=== PATIENT | male | born 1975 | race Caucasian/White ===

== ENCOUNTER 2021-12-31 07:12 | Inpatient (IN) | payer SELFPAY ==
[2021-12-31] VITALS (10 sets, daily range): BP systolic 112–136; BP diastolic 60–85; PULSE 68–94; RESP 16–24; TEMP 36.5–37; O2SAT 97–100; BMI 23.0
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
[2021-12-31] MEDS: SODIUM CHLORIDE 0.9% IV 1,000 ML 999 ML IV CONT ×2 (07:30→09:14)
[2021-12-31] MEDS: MORPHINE SULFATE (*CRX) 4 MG/ML INJ IM (07:32)
[2021-12-31] MEDS: TETANUS,DIPHTHERIA,AC PERTUSSIS ADULT 0.5 ML (ADACEL) IM (07:36)
[2021-12-31 07:43] LABS: Hematocrit 28.7 % (40.0-54.0); Hemoglobin 9.5 g/dL (14.0-18.0); Mean Corpuscular HGB Conc 33.1 g/dL (32.0-36.0); Mean Corpuscular Hemoglobin 27.5 pg (27.0-31.0); Mean Corpuscular Volume 83.2 fL (78.0-102.0); Mean Platelet Volume 10.6 fl (8.7-11.0); Platelet Count Result 220 K/mm3 (150-420); Red Blood Count 3.45 M/mm3 (4.70-6.10); Red Cell Distribution Width 16.7 % (11.6-14.4); White Blood Count 6.4 K/mm3 (4.8-10.8)
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
[2021-12-31 08:00] LABS: Lactic Acid Reflex 2.3 mmol/L (0.4-2.0)
[2021-12-31 08:03] LABS: Band Neutrophils Percent 2 % (0-6); Lymphocytes Absolute Manual 1.02 K/mm3 (1.1-4.5); Lymphocytes Percent Manual 16 % (18-44); Monocytes Absolute Manual 0.44 K/mm3 (0.1-0.90); Monocytes Percent Manual 7 % (3-9); Neutrophils Absolute Manual 4.92 K/mm3 (1.3-6.7); Neutrophils Percent Manual 75 % (46-73); Platelet Estimate Adequate (Adequate); Total Cells Counted 100
[2021-12-31 08:09] LABS: Alanine Aminotransferase 101 U/L (16-63); Albumin Level 3.6 g/dL (3.4-5.0); Alkaline Phosphatase 70 U/L (46-116); Anion Gap 10 mmol/L (8-16); Aspartate Amino Transferase 193 U/L (15-37); Bilirubin,Total 0.4 mg/dL (0.00-1.00); Blood Urea Nitrogen 21 mg/dL (7-18); Calcium 7.9 mg/dL (8.5-10.1); Carbon Dioxide 20 mmol/L (21-32); Chloride 111 mmol/L (98-108); Creatine Kinase 5195 U/L (39-308); Estimated CRCL calculation 63 ml/min; Estimated Glomerular Filt Rate > 60; Glucose 103 mg/dL (70-99); Osmolality Calculated 295 mOsm/kg (285-295); Potassium 4.1 mmol/L (3.5-5.1); Sodium 141 mmol/L (136-145); Total Protein 6.7 g/dL (6.4-8.2)
[2021-12-31 08:11] LABS: CRP 0.8 mg/dL (0.0-0.9)
[2021-12-31 08:27] LABS: Ethanol 88 mg/dL (0-6)
[2021-12-31 08:28] LABS: Amphetamine Screen Urine Positive (Negative); Barbiturate Screen Urine Negative (Negative); Benzodiazepines Screen Urine Negative (Negative); Cannabinoid Screen Urine Positive (Negative); Cocaine Screen Urine Negative (Negative); Methadone Screen Urine Negative (Negative); Opiate Screen Urine Positive (Negative); Phencyclidine Screen Urine Negative (Negative)
[2021-12-31 08:29] LABS: Appearance Urine Cloudy (Clear); Blood Urine 3+ (Negative); Color Urine Brown (Yellow); Glucose Urine UA Negative (Negative); Ketones Urine Trace (Negative); Protein Urine 1+ (Negative); Specific Grav Ur 1.025 (1.010-1.020); pH Urine 5.5 (5.0-8.0)
[2021-12-31 08:30] LABS: Add Urine Microscopic? YES; Amorphous Sediment Urine Few; Bilirubin Urine Negative (Negative); Leukocyte Esterase Ur Negative (Negative); Nitrate Urine Negative (Negative); RBC Urine >75 /hpf (0-2); Urobilinogen Urine 0.2 mg/dL (0.2-1.0); WBC Urine 0-3 /hpf (0-3)
[2021-12-31 08:31] LABS: Bacteria Urine 2+ /hpf; Squamous Epithelial Cell Urine None seen /hpf (Few)
--- NOTE | 2021-12-31 08:42 | PC.NURSE ---
[address] [facility]
[2021-12-31 08:45] LABS: Partial Thromboplastin Time 26.8 SEC (23.90-30.70); Prothrombin Time 11.3 Seconds (9.50-12.10)
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
[2021-12-31] MEDS: HYDROmorphone HCL INJ (*CRX) 2 MG/ML VIAL 1 MG IV PUSH (09:09)
--- NOTE | 2021-12-31 09:31 | PC.NURSE ---
extensive wound cleansing per [facility]. photos obtained. verbal consent of pt given for photo
--- NOTE | 2021-12-31 09:44 | PC.NURSE ---
all wounds cleaned with surecleanse. open lacerations irrigated with normal saline sterile. no active bleeding noted. pt voided 300 ml dk yellow urine. iv infusing well.
[2021-12-31] MEDS: LIDOCAINE HCL 1% LOCAL INJ 10 ML VIAL 30 ML (10:07)
--- NOTE | 2021-12-31 10:12 | PC.NURSE ---
suture line and abrasions cleaned and triple antibiotic oint applied to all
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
[2021-12-31 10:40] LABS: Reflex Lactic Acid Yes or No Add Lactic
[2021-12-31] MEDS: NEOMYCIN/POLYMYXIN/BACITRACIN OINTMENT PACKET 1 PACKET TOPICAL (10:41)
--- NOTE | 2021-12-31 10:44 | PC.NURSE ---
pt to be admitted to floor room 209
--- NOTE | 2021-12-31 11:44 | ADMGEN ---
This patient, Raad Pretty, was admitted to 2nd Floor Room 209-1. Patient/family oriented to hospital policies and general routines including ID bracelet, bed and alarms, visiting hours, pain management, procedures, bathroom and other care routines, personal items, smoking policy, room service/diet, and visiting hours. Information on how to activate the Rapid Response Team has been discussed. Patient/Family are encouraged to report perceived risks to care and to ask questions if they do not understand what they are told or what they should do.
[2021-12-31 11:45] LABS: Lactic Acid 2.5 mmol/L (0.4-2.0)
[2021-12-31] MEDS: SODIUM CHLORIDE 0.9% IV 1,000 ML 150 ML IV CONT ×2 (12:00→20:31)
[2021-12-31] MEDS: MORPHINE SULFATE (*CRX) 2 MG/ML INJ IV PUSH ×2 (17:28→21:26)
[2021-12-31] MEDS: ONDANSETRON INJ 4 MG/2 ML VIAL IV PUSH (17:29)
[2021-12-31] MEDS: HYDROcodone/acetaminophen (*CRX) 10-325 MG TABLET 1 TAB PO (19:55)
[2022-01-01] VITALS (7 sets, daily range): BP systolic 128–142; BP diastolic 73–88; PULSE 59–80; RESP 17–19; TEMP 36.3–37.2; O2SAT 98–99
[2022-01-01] MEDS: MORPHINE SULFATE (*CRX) 2 MG/ML INJ IV PUSH ×2 (01:22→05:22)
[2022-01-01] MEDS: SODIUM CHLORIDE 0.9% IV 1,000 ML 150 ML IV CONT ×3 (03:47→19:20)
[2022-01-01] MEDS: HYDROcodone/acetaminophen (*CRX) 10-325 MG TABLET 1 TAB PO ×3 (04:40→17:26)
[2022-01-01 05:21] LABS: Hematocrit 27.3 % (40.0-54.0); Hemoglobin 9.1 g/dL (14.0-18.0); Mean Corpuscular HGB Conc 33.3 g/dL (32.0-36.0); Mean Corpuscular Hemoglobin 27.9 pg (27.0-31.0); Mean Corpuscular Volume 83.7 fL (78.0-102.0); Mean Platelet Volume 11.6 fl (8.7-11.0); Platelet Count Result 204 K/mm3 (150-420); Red Blood Count 3.26 M/mm3 (4.70-6.10); Red Cell Distribution Width 16.6 % (11.6-14.4); White Blood Count 6.2 K/mm3 (4.8-10.8)
[2022-01-01 05:40] LABS: Lactic Acid Reflex 0.6 mmol/L (0.4-2.0)
[2022-01-01 05:48] LABS: Alanine Aminotransferase 88 U/L (16-63); Albumin Level 2.8 g/dL (3.4-5.0); Alkaline Phosphatase 62 U/L (46-116); Anion Gap 6 mmol/L (8-16); Aspartate Amino Transferase 101 U/L (15-37); Bilirubin,Total 0.8 mg/dL (0.00-1.00); Blood Urea Nitrogen 16 mg/dL (7-18); Calcium 7.4 mg/dL (8.5-10.1); Carbon Dioxide 25 mmol/L (21-32); Chloride 106 mmol/L (98-108); Estimated CRCL calculation 89 ml/min; Estimated Glomerular Filt Rate > 60; Glucose 108 mg/dL (70-99); Magnesium 1.8 mg/dL (1.8-2.4); Osmolality Calculated 286 mOsm/kg (285-295); Potassium 4.1 mmol/L (3.5-5.1); Sodium 137 mmol/L (136-145); Total Protein 5.5 g/dL (6.4-8.2)
[2022-01-01 05:52] LABS: Creatine Kinase 3808 U/L (39-308)
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
[2022-01-01] MEDS: HYDROmorphone HCL INJ (*CRX) 2 MG/ML VIAL 0.5 MG IV PUSH (09:23)
[2022-01-01] MEDS: oxyCODONE HCL (*CRX) 20 MG TAB SR 12HR PO (20:27)
[2022-01-01] MEDS: traZODone HCL 50 MG TABLET PO (20:27)
--- NOTE | 2022-01-01 23:52 | PC.NURSE ---
Pt states that his hands are still experiencing pain however, his L hand hurts worse. Finding noted.
[2022-01-02 04:00] VITALS: PULSE 70
[2022-01-02] MEDS: SODIUM CHLORIDE 0.9% IV 1,000 ML 150 ML IV CONT (04:09)
[2022-01-02] MEDS: HYDROcodone/acetaminophen (*CRX) 10-325 MG TABLET 1 TAB PO ×2 (04:58→11:53)
[2022-01-02 05:21] LABS: Hematocrit 28.1 % (40.0-54.0); Hemoglobin 9.1 g/dL (14.0-18.0); Immature Platelet Fraction Pct 9.4 % (1.0-7.0); Mean Corpuscular HGB Conc 32.4 g/dL (32.0-36.0); Mean Corpuscular Hemoglobin 27.9 pg (27.0-31.0); Mean Corpuscular Volume 86.2 fL (78.0-102.0); Mean Platelet Volume 13.4 fl (8.7-11.0); Platelet Count Result 122 K/mm3 (150-420); Red Blood Count 3.26 M/mm3 (4.70-6.10); Red Cell Distribution Width 16.7 % (11.6-14.4)
[2022-01-02 05:35] LABS: Alanine Aminotransferase 105 U/L (16-63); Albumin Level 2.8 g/dL (3.4-5.0); Alkaline Phosphatase 62 U/L (46-116); Anion Gap 4 mmol/L (8-16); Aspartate Amino Transferase 89 U/L (15-37); Bilirubin,Total 0.6 mg/dL (0.00-1.00); Blood Urea Nitrogen 9 mg/dL (7-18); Calcium 7.7 mg/dL (8.5-10.1); Carbon Dioxide 26 mmol/L (21-32); Chloride 106 mmol/L (98-108); Estimated CRCL calculation 97 ml/min; Estimated Glomerular Filt Rate > 60; Glucose 102 mg/dL (70-99); Magnesium 2.1 mg/dL (1.8-2.4); Osmolality Calculated 280 mOsm/kg (285-295); Potassium 4.1 mmol/L (3.5-5.1); Sodium 136 mmol/L (136-145); Total Protein 5.7 g/dL (6.4-8.2)
[2022-01-02] MEDS: ACETAMINOPHEN 500 MG TABLET 1000 MG PO (07:20)
[2022-01-02 07:49] VITALS: PULSE 65
[2022-01-02 08:00] VITALS: BP 135/75; PULSE 65; RESP 20; TEMP 36.8; O2SAT 97
[2022-01-02] MEDS: THIAMINE HCL 50 MG TABLET PO (08:19)
[2022-01-02] MEDS: oxyCODONE HCL (*CRX) 20 MG TAB SR 12HR PO (08:20)
[2022-01-02] MEDS: CALCIUM CARBONATE (TUMS) 500 MG (200 MG ELEMENTAL) PO (08:20)
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
[2022-01-02 12:00] VITALS: PULSE 69
--- NOTE | 2022-01-04 13:20 | PC.NURSE ---
Unable to contact for discharge call back.
== END 2022-01-02 13:10 | disposition home or self-care (01) | DRG 342 ==
LOC: CHSED 10:31 → CHS2ND 11:05
PROVIDERS: Nurse Practitioner; Admitting Provider Internal Medicine; Emergency Provider Emergency Medicine; Visit Provider Internal Medicine
DX: S42.112A Displaced fracture of body of scapula, left shoulder, initial encounter for closed fracture (principal); S32.455A Nondisplaced transverse fracture of left acetabulum, initial encounter for closed fracture; S21.211A Laceration without foreign body of right back wall of thorax without penetration into thoracic cavity, initial encounter; M62.82 Rhabdomyolysis; S00.81XA Abrasion of other part of head, initial encounter; S40.819A Abrasion of unspecified upper arm, initial encounter; S70.219A Abrasion, unspecified hip, initial encounter; S80.219A Abrasion, unspecified knee, initial encounter; R74.8 Abnormal levels of other serum enzymes; F17.210 Nicotine dependence, cigarettes, uncomplicated; F19.10 Other psychoactive substance abuse, uncomplicated; T14.8XXA Other injury of unspecified body region, initial encounter; V49.9XXA Car occupant (driver) (passenger) injured in unspecified traffic accident, initial encounter
CPT/HCPCS: 12002; 36415; 70450; 71250; 73030; 73120; 73560; 74176; 80053; 80307; 81001; 82550; 83605; 83735; 85025; 85027; 85055; 85610; 85730; 86140; 90471; 90715; 96361; 96372; 96374; 97161; 97165; 99285; A4565; A9270; J0696; J1170; J2270; J2405; J7030